=== PATIENT | male | born 1975 | race Hispanic/Latino ===

== ENCOUNTER 2021-08-24 09:10 | Emergency (ER) | payer SELFPAY ==
[~2021-08-24] VITALS: Ht 165.1 cm; Wt 97.5 kg
[2021-08-24 09:47] LABS: BASOPHILS % (AUTO) 0.7 % (0.0-5.0); EOSINOPHILS % (AUTO) 0.8 % (0.0-8.0); HEMATOCRIT 45.7 % (42-54); LYMPHOCYTES % (AUTO) 23.3 % (21.0-51.0); MEAN CORPUSCULAR HEMOGLOBIN 31.8 pg (27.0-33.0); MEAN CORPUSCULAR HGB CONC 33.9 g/dL (32.0-36.0); MEAN CORPUSCULAR VOLUME 93.6 fL (79-99); MONOCYTES % (AUTO) 6.8 % (3.0-13.0); PLATELET COUNT (AUTO) 297 K/uL (130-400); RED BLOOD CELL COUNT(AUTO) 4.88 MIL/uL (4.50-6.20); RED CELL DISTRIBUTION WIDTH 13.4 % (11.0-15.5); WHITE BLOOD COUNT (AUTO) 8.2 K/uL (4.8-10.8)
[2021-08-24 10:00] LABS: BILIRUBIN,TOTAL 0.2 mg/dL (0.2-1.0); POTASSIUM 4.5 mmol/L (3.5-5.1); TOTAL PROTEIN, SERUM 8.1 g/dL (6.0-8.3)
[2021-08-24] MEDS ORDERED: KETOROLAC 30MG VIAL (30MG/ML) IV PRN (10:00)
[2021-08-24] MEDS ORDERED: IPRATROPIUM/ALBUTEROL SULFATE 3 ML SOLUTION IH SCH (10:00)
[2021-08-24] MEDS ORDERED: MORPHINE 4 MG SYG ONE (10:08)
[2021-08-24] MEDS ORDERED: MORPHINE 4 MG SYG IV SCH (10:30)
[2021-08-24 10:45] VITALS: BP 156/89
[2021-08-24] MEDS ORDERED: PRED20TA3 PO (11:58)
[2021-08-24] MEDS ORDERED: ALBU6.7H9 IH (11:58)
[2021-08-24] MEDS ORDERED: LEVO500T90 PO (11:58)
[2021-08-24] MEDS ORDERED: FAMO-136 PO (12:01)
== END 2021-08-24 12:07 | disposition home or self-care (01) ==
LOC: EDH 09:10
DX: S22.42XA Multiple fractures of ribs, left side, initial encounter for closed fracture (principal); J44.1 Chronic obstructive pulmonary disease with (acute) exacerbation; J45.901 Unspecified asthma with (acute) exacerbation; J20.9 Acute bronchitis, unspecified; F17.210 Nicotine dependence, cigarettes, uncomplicated; X58.XXXA Exposure to other specified factors, initial encounter; Y93.9 Activity, unspecified; Y92.89 Other specified places as the place of occurrence of the external cause; Y99.8 Other external cause status
CPT/HCPCS: 36415; 71045; 71100; 80053; 85025; 87635; 87804 ×2; 94640; 96374; 99284; C9803; J2270